=== PATIENT | female | born 1980 | race Two or more races ===

== ENCOUNTER 2023-02-10 19:19 | Inpatient (IN) | payer OTHER ==
[~2023-02-10] VITALS: Ht 162.6 cm; Wt 63.5 kg
== END 2023-02-14 10:21 | disposition home or self-care (01) | DRG 418 ==
LOC: ER 19:19 → MEDJ 02-11 10:51
PROVIDERS: General Practice; Internal Medicine Infectious Disease; Surgery; ADMIT Internal Medicine; ATTEND Internal Medicine
PROC: BW40ZZZ Ultrasonography of Abdomen (ICD-10-PCS; 2023-02-11)
PROC: BF52200 Other Imaging of Gallbladder using Fluorescing Agent, Indocyanine Green Dye, Intraoperative (ICD-10-PCS; 2023-02-12)
PROC: 0FT44ZZ Resection of Gallbladder, Percutaneous Endoscopic Approach (ICD-10-PCS; principal; 2023-02-12 15:00)
DX: K80.10 Calculus of gallbladder with chronic cholecystitis without obstruction (principal); B37.49 Other urogenital candidiasis; K82.8 Other specified diseases of gallbladder; K66.0 Peritoneal adhesions (postprocedural) (postinfection)

== ENCOUNTER 2023-02-17 11:19 | Emergency (ER) | payer OTHER ==
[~2023-02-17] VITALS: Ht 162.6 cm; Wt 63.5 kg
[2023-02-17] MEDS ORDERED: AMOXICILLIN875 MG PO (11:39)
== END 2023-02-17 17:43 | disposition home or self-care (01) ==
LOC: ER 11:19
PROVIDERS: General Practice
DX: M79.604 Pain in right leg (principal)

== ENCOUNTER 2024-04-15 22:59 | Emergency (ER) | payer OTHER ==
[~2024-04-15] VITALS: Ht 162.6 cm; Wt 65.8 kg
[~2024-04-15 22:59] MED LIST: AMOXICILLIN875 MG PO
[2024-04-15 23:23] VITALS: BP 114/77; O2SAT 99
[2024-04-16] MEDS ORDERED: 0.9 % SODIUM CHLORIDE 1,000 ML IV ONE (00:30)
[2024-04-16 01:42] LABS: URINE APPEARANCE Clear; URINE BILIRRUBIN Negative (NEGATIVE); URINE BLOOD Large; URINE COLOR Orange; URINE GLUCOSE Negative (NEGATIVE); URINE KETONE Negative (NEGATIVE); URINE LEUKOCYTE Small; URINE NITRATE Negative; URINE PROTEIN Trace (NEGATIVE); URINE UROBILINOGEN 0.2 E.U./dl
[2024-04-16 01:47] LABS: URINE BACTERIA 45.3 uL (0.0-1933); URINE EPITHELIAL CELLS 52.3 uL (0.0-38.8); URINE RBC 6375.1 uL (0.0-20.8); URINE WBC 48.3 uL (0.0-23.2)
[2024-04-16 02:17] LABS: HEMATOCRIT 40.2 % (36.0-45.00); HEMOGLOBIN 13.8 g/dL (12.0-15.00); MEAN CELL VOLUME 85.4 fL (80.00-100.00); MEAN CORPUSCULAR HEMOGLOBIN 29.4 pg (27.00-32.0); MEAN CORPUSCULAR HGB CONC 34.4 g/dl (32.0-36.0); PLATELET COUNT 276 K/uL (150-450); RED BLOOD COUNT 4.71 M/uL (4.00-6.00); RED CELL DISTRIBUTION WIDTH 13.6 % (11.5-14.5)
[2024-04-16 02:32] LABS: INR < 0.93; PARTIAL THROMBOPLASTIN TIME 28.8 SECONDS (22.0-34.0); PROTHROMBIN TIME 9.8 SECONDS (9.0-11.5)
[2024-04-16 02:41] LABS: ALBUMIN 4.1 gm/dL (3.4-5.0); ALKALINE PHOSPHATASE 97 U/L (50-136); ALT/SGPT 17 U/L (12-78); AMYLASE 70 U/L (25-115); ANION GAP 7 (10.0-20.0); AST/SGOT 19 U/L (15-37); BILIRUBIN TOTAL 0.33 mg/dL (0.3-1.2); BLOOD UREA NITROGEN 13 mg/dL (7-18); BUN CREA RATIO 20 (7.0-25.0); CALCIUM 9.7 mg/dL (8.5-10.1); CARBON DIOXIDE 28 mEq/L (21-32); CHLORIDE 108 mmol/L (98-107); CREATININE SERUM 0.64 mg/dL (0.55-1.02); GFR 101.28; GLOBULINA 3.4 G/DL (2.4-3.5); GLUCOSE FASTING 88 mg/dL (65-100); HCG QUANTITATIVE < 1 mUI/mL (1-3); LIPASE 28 U/L (13-75); OSMOLALITY SERUM 277 MOSM/KG (275-295); POTASSIUM 4.19 mEq/L (3.5-5.1); SODIUM 139 mmol/L (136-145); TOTAL PROTEIN 7.5 gm/dL (6.4-8.2)
== END 2024-04-16 06:50 ==
LOC: ER 23:01
PROVIDERS: General Practice
DX: M79.604 Pain in right leg (principal); R10.9 Unspecified abdominal pain
CPT/HCPCS: 36415; 74177; Q9965